=== PATIENT | male | born 1965 | race Two or more races ===

== ENCOUNTER 2017-12-27 19:53 | Emergency (ER) | payer BC, OTHER ==
[~2017-12-27] VITALS: Ht 152.4 cm; Wt 90.0 kg
[2017-12-27] MEDS ORDERED: OXYMETAZOLINE NASAL SPRAY 0.05%, 15ML ONE (20:21)
[2017-12-27] MEDS ORDERED: LOSARTAN 50MG TABLET PO STA (20:23)
[2017-12-27 20:30] LABS: BASOPHILS # (AUTO) 0.04 x10^3/uL (0-0.1); BASOPHILS % (AUTO) 1 % (0-1); EOSINOPHILS # (AUTO) 0.09 x10^3/uL (0-0.4); EOSINOPHILS % (AUTO) 1 % (1-7); LYMPHOCYTES % (AUTO) 18 % (22-44); MD NO; MEAN CORPUSCULAR HEMOGLOBIN 30.6 pg (27.5-34.5); MEAN CORPUSCULAR HGB CONC 34.5 g/dL (33.2-36.2); MEAN CORPUSCULAR VOLUME 88.7 fL (81-97); MEAN PLATELET VOLUME 8.1 fL (7.4-10.4); MONOCYTES # (AUTO) 0.45 x10^3/uL (0.2-0.8); MONOCYTES % (AUTO) 6 % (2-9); NEUTROPHILS # (AUTO) 5.73 x10^3/uL (1.8-6.8); NEUTROPHILS % (AUTO) 74 % (42-75); PLATELET COUNT 222 x10^3/uL (130-400); RED BLOOD COUNT 4.91 x10^6/uL (4.38-5.82); RED CELL DISTRIBUTION WIDTH 13.5 % (9.4-14.8)
[2017-12-27] MEDS ORDERED: OXYMETAZOLINE NASAL SPRAY 0.05%, 15ML NAS ONE (20:30)
[2017-12-27 20:38] LABS: ALBUMIN 3.8 g/dL (3.4-5.0); ANION GAP 7 mmol/L (5-15); CALCIUM 8.7 mg/dL (8.5-10.1); CHLORIDE 104 mmol/L (98-107); CREATININE 0.92 mg/dL (0.7-1.3)
[2017-12-27] MEDS ORDERED: SILVER NITRATE STICK TP ONE (21:18)
[2017-12-27 21:48] VITALS: BP 167/99
== END 2017-12-27 21:50 | disposition home or self-care (01) ==
LOC: ED 21:40
DX: R04.0 Epistaxis (principal); I10 Essential (primary) hypertension
CPT/HCPCS: 30901; 36415; 71045; 80048; 82040; 85025; 93005; 99285

== ENCOUNTER 2018-09-24 15:25 | Emergency (ER) | payer BC ==
[~2018-09-24] VITALS: Ht 167.6 cm; Wt 93.2 kg
[2018-09-24 15:26] VITALS: BP 140/80
== END 2018-09-24 17:26 | disposition home or self-care (01) ==
LOC: ED 16:11
DX: R10.9 Unspecified abdominal pain (principal); R53.1 Weakness; R11.2 Nausea with vomiting, unspecified
CPT/HCPCS: 36415; 74022; 80053; 81003; 83690; 85025; 93005; 99284; Q0162